=== PATIENT | male | born 1980 | race Caucasian/White ===

== ENCOUNTER 2024-01-07 07:45 | Emergency (ER) | payer SELFPAY ==
[2024-01-07 12:16] LABS: BASOPHILS ABSOLUTE AUTO 0.05 K/uL (0.00-0.20); BASOPHILS PERCENT AUTO 0.6 % (0.0-1.0); EOSINOPHILS ABSOLUTE AUTO 0.94 K/uL (0.00-0.45); EOSINOPHILS PERCENT AUTO 11.2 % (0.0-6.0); HEMATOCRIT 42.1 % (42.0-52.0); HEMOGLOBIN 15.3 g/dL (14.0-18.0); IMMATURE GRAN ABSOLUTE AUTO 0.02 K/uL (0.00-0.05); IMMATURE GRAN PERCENT AUTO 0.2 % (0.0-0.4); LYMPHOCYTES ABSOLUTE AUTO 2.04 K/uL (1.00-4.80); LYMPHOCYTES PERCENT AUTO 24.3 % (24.0-44.0); MEAN CORPUSCULAR HEMOGLOBIN 31.8 pg (28.0-32.0); MEAN CORPUSCULAR HGB CONC 36.3 g/dL (32.0-36.0); MEAN CORPUSCULAR VOLUME 87.5 fL (83.0-99.0); MEAN PLATELET VOLUME 9.7 fL (9.4-12.4); MONOCYTES ABSOLUTE AUTO 0.54 K/uL (0.00-0.80); MONOCYTES PERCENT AUTO 6.4 % (0.0-8.0); NEUTROPHILS PERCENT AUTO 57.3 % (41.0-71.0); PLATELET COUNT,PLT 267 K/uL (150-400); RED BLOOD CELL COUNT 4.81 M/uL (4.52-5.90); WHITE BLOOD CELL COUNT,WBC 8.39 K/uL (3.9-11.3)
[2024-01-07 12:20] LABS: A/G RATIO 1.1 (0.9-1.6); ALBUMIN 3.6 g/dL (3.4-5.0); BILIRUBIN TOTAL 0.3 mg/dL (0.2-1.0); C-REACTIVE PROTEIN 0.57 mg/dL (<0.3); CALCIUM 8.5 mg/dL (8.5-10.1); CARBON DIOXIDE,CO2 24.1 mmol/L (21.0-32.0); CREATININE 0.9 mg/dL (0.8-1.3); EST CRCL DRUG DOSING (CG) 108.01 mL/min; POTASSIUM,K 3.7 mmol/L (3.5-5.1); PROTEIN TOTAL,TP 6.8 g/dL (6.4-8.2)
== END 2024-01-07 11:25 | disposition home or self-care (01) ==
LOC: MW.ED 07:45
DX: S91.301A Unspecified open wound, right foot, initial encounter (principal); X58.XXXA Exposure to other specified factors, initial encounter
CPT/HCPCS: 36415; 73630-26-RT; 73630-RT; 80053; 85025; 85652; 86140; 99283

== ENCOUNTER 2024-04-03 09:23 | Emergency (ER) | payer SELFPAY ==
[2024-04-03] MEDS ORDERED: Sodium Chloride 0.9% 2.5 ML Syringe FLUSH PRN (12:04)
[2024-04-03] MEDS ORDERED: Sodium Chloride 0.9% 10 ML Syringe FLUSH PRN (12:04)
[2024-04-03] MEDS ORDERED: Sodium Chloride 0.9% 20 ML SDV IV PRN (12:04)
[2024-04-03 12:58] LABS: CALCIUM 9.3 mg/dL (8.5-10.1); CARBON DIOXIDE,CO2 25.9 mmol/L (21.0-32.0); CREATININE 0.8 mg/dL (0.8-1.3); EST CRCL DRUG DOSING (CG) 151.59 mL/min; POTASSIUM,K 4.3 mmol/L (3.5-5.1)
[2024-04-03] MEDS: Gadobenate Dimeglumine 529 MG/ML 20 ML SDV IVPUSH STA (13:14)
== END 2024-04-03 15:08 | disposition home or self-care (01) ==
LOC: MW.ED 09:23
DX: E11.69 Type 2 diabetes mellitus with other specified complication (principal); M86.9 Osteomyelitis, unspecified; E11.621 Type 2 diabetes mellitus with foot ulcer; L97.519 Non-pressure chronic ulcer of other part of right foot with unspecified severity; F17.210 Nicotine dependence, cigarettes, uncomplicated; Z79.84 Long term (current) use of oral hypoglycemic drugs; Z79.899 Other long term (current) drug therapy; Z75.8 Other problems related to medical facilities and other health care
CPT/HCPCS: 36415; 73720; 80048; 99284; A9577

== ENCOUNTER 2024-04-06 07:01 | Inpatient (IN) | payer OTHER ==
[2024-04-06 08:02] LABS: BASOPHILS ABSOLUTE AUTO 0.05 K/uL (0.00-0.20); BASOPHILS PERCENT AUTO 0.6 % (0.0-1.0); EOSINOPHILS ABSOLUTE AUTO 0.83 K/uL (0.00-0.45); EOSINOPHILS PERCENT AUTO 10.8 % (0.0-6.0); HEMATOCRIT 44.6 % (42.0-52.0); HEMOGLOBIN 15.8 g/dL (14.0-18.0); IMMATURE GRAN ABSOLUTE AUTO 0.02 K/uL (0.00-0.05); IMMATURE GRAN PERCENT AUTO 0.3 % (0.0-0.4); LYMPHOCYTES ABSOLUTE AUTO 1.61 K/uL (1.00-4.80); LYMPHOCYTES PERCENT AUTO 20.9 % (24.0-44.0); MEAN CORPUSCULAR HEMOGLOBIN 30.5 pg (28.0-32.0); MEAN CORPUSCULAR HGB CONC 35.4 g/dL (32.0-36.0); MEAN CORPUSCULAR VOLUME 86.1 fL (83.0-99.0); MEAN PLATELET VOLUME 9.8 fL (9.4-12.4); MONOCYTES ABSOLUTE AUTO 0.57 K/uL (0.00-0.80); MONOCYTES PERCENT AUTO 7.4 % (0.0-8.0); NEUTROPHILS ABSOLUTE AUTO 4.64 K/uL (1.80-7.70); PLATELET COUNT,PLT 222 K/uL (150-400); RED BLOOD CELL COUNT 5.18 M/uL (4.52-5.90); WHITE BLOOD CELL COUNT,WBC 7.72 K/uL (3.9-11.3)
[2024-04-06 08:10] LABS: CALCIUM 8.7 mg/dL (8.5-10.1); CARBON DIOXIDE,CO2 24.4 mmol/L (21.0-32.0); CREATININE 0.9 mg/dL (0.8-1.3); EST CRCL DRUG DOSING (CG) 134.75 mL/min
[2024-04-06] MEDS ORDERED: Sodium Chloride 0.9% 2.5 ML Syringe FLUSH PRN (10:12)
[2024-04-06] MEDS ORDERED: Polyethylene Glycol 3350 Powder 17 GM Packet PO PRN (10:12)
[2024-04-06] MEDS ORDERED: Ondansetron 4 MG/2 ML SDV IVPUSH PRN (10:12)
[2024-04-06] MEDS ORDERED: Acetaminophen 650 MG Supp RECTAL PRN (10:12)
[2024-04-06] MEDS ORDERED: Sodium Chloride 0.9% 10 ML Syringe FLUSH PRN (10:12)
[2024-04-06] MEDS ORDERED: 50% Dextrose in Water 50 ML Syringe IVPUSH PRN (10:16)
[2024-04-06] MEDS ORDERED: Glucagon,Human Recombinant 1 MG Vial IM PRN (10:16)
[2024-04-06 10:34] LABS: HEMOGLOBIN A1C 5.8 %
[2024-04-06] MEDS: Insulin Aspart 100 Units/ML 3 ML Pen SUBCUT SCH (12:12)
[2024-04-06] MEDS: VANCOmycin 2 GM/400 ML 2 GM in Premix Bag 1 BAG IV ONE (12:18)
[2024-04-06] MEDS: Piperacillin/Tazobactam 4.5 GM in Sodium Chloride 0.9% 100 ML IV ONE (12:32)
[2024-04-06] MEDS: Piperacillin/Tazobactam 4.5 GM in Sodium Chloride 0.9% 100 ML IV SCH (17:32)
[2024-04-06] MEDS: VANCOmycin 1.5 GM/300 ML 1.5 GM in Premix Bag 1 BAG IV SCH (22:54)
[2024-04-07 05:49] LABS: HEMATOCRIT 43.3 % (42.0-52.0); HEMOGLOBIN 15.2 g/dL (14.0-18.0); MEAN CORPUSCULAR HEMOGLOBIN 30.6 pg (28.0-32.0); MEAN CORPUSCULAR HGB CONC 35.1 g/dL (32.0-36.0); MEAN CORPUSCULAR VOLUME 87.1 fL (83.0-99.0); MEAN PLATELET VOLUME 9.8 fL (9.4-12.4); PLATELET COUNT,PLT 201 K/uL (150-400); RED BLOOD CELL COUNT 4.97 M/uL (4.52-5.90); WHITE BLOOD CELL COUNT,WBC 6.26 K/uL (3.9-11.3)
[2024-04-07 06:11] LABS: C-REACTIVE PROTEIN 0.36 mg/dL (<0.3); CALCIUM 8.6 mg/dL (8.5-10.1); CARBON DIOXIDE,CO2 25.5 mmol/L (21.0-32.0); CREATININE 0.9 mg/dL (0.8-1.3); EST CRCL DRUG DOSING (CG) 134.75 mL/min
[2024-04-07] MEDS ORDERED: Morphine 2 MG/ML SYRINGE IVPUSH PRN (07:37)
[2024-04-07] MEDS ORDERED: Ondansetron 4 MG/2 ML SDV IVPUSH PRN (07:37)
[2024-04-07] MEDS ORDERED: HYDROmorphone 1 MG/ML Syringe IVPUSH PRN (07:37)
[2024-04-07] MEDS ORDERED: fentaNYL 50 MCG/ML SDV IVPUSH PRN (07:37)
[2024-04-07] MEDS ORDERED: Naloxone 0.4 MG/ML SDV IVPUSH PRN (07:37)
[2024-04-07] MEDS ORDERED: Metoclopramide 10 MG/2 ML SDV IVPUSH PRN (07:37)
[2024-04-07] MEDS ORDERED: Albuterol 0.083% 2.5 MG/3 ML Neb Soln NEB PRN (07:37)
[2024-04-07] MEDS ORDERED: droPERidol 5 MG/2 ML SDV IVPUSH PRN (07:37)
[2024-04-07] MEDS ORDERED: Propofol 200 MG/20 ML SDV ONE ×2 (08:34→10:45)
[2024-04-07] MEDS ORDERED: fentaNYL 100 MCG/2 ML SDV ONE (08:34)
[2024-04-07] MEDS ORDERED: Ketamine HCL/NACL, ISO-OSM 50 MG/5 ML Syringe ONE (08:34)
[2024-04-07] MEDS ORDERED: dexmedeTOMIDine HCl 200 MCG/2 ML SDV ONE (08:36)
[2024-04-07] MEDS ORDERED: Water For Injection, Sterile 20 ML ONE (08:36)
[2024-04-07] MEDS ORDERED: Rocuronium Bromide 50 MG/5 ML Syringe ONE (08:38)
[2024-04-07] MEDS ORDERED: Bupivacaine 0.5% 30 ML SDV ONE (08:54)
[2024-04-07] MEDS ORDERED: Ondansetron 4 MG/2 ML SDV ONE (09:32)
[2024-04-07] MEDS ORDERED: Ketorolac 30 MG/ML SDV ONE (09:55)
[2024-04-07] MEDS ORDERED: Sugammadex Sodium 200 MG/2 ML VIAL IV ONE (09:55)
[2024-04-07] MEDS: Heparin Sodium 5,000 Units/ML Vial SUBCUT SCH (21:15)
[2024-04-08 06:25] LABS: HEMATOCRIT 41.1 % (42.0-52.0); HEMOGLOBIN 14.7 g/dL (14.0-18.0); MEAN CORPUSCULAR HEMOGLOBIN 31.5 pg (28.0-32.0); MEAN CORPUSCULAR HGB CONC 35.8 g/dL (32.0-36.0); MEAN PLATELET VOLUME 9.9 fL (9.4-12.4); PLATELET COUNT,PLT 179 K/uL (150-400); RED BLOOD CELL COUNT 4.67 M/uL (4.52-5.90); WHITE BLOOD CELL COUNT,WBC 8.34 K/uL (3.9-11.3)
[2024-04-08 06:46] LABS: CALCIUM 8.4 mg/dL (8.5-10.1); CARBON DIOXIDE,CO2 25.9 mmol/L (21.0-32.0); CREATININE 0.8 mg/dL (0.8-1.3); EST CRCL DRUG DOSING (CG) 151.59 mL/min
[2024-04-08] MEDS: Lisinopril 5 MG Tab PO SCH (09:54)
[2024-04-08] MEDS: Acetaminophen 325 MG Tab PO PRN (18:37)
[2024-04-09 06:04] LABS: HEMATOCRIT 42.6 % (42.0-52.0); HEMOGLOBIN 15.2 g/dL (14.0-18.0); MEAN CORPUSCULAR HEMOGLOBIN 31.1 pg (28.0-32.0); MEAN CORPUSCULAR HGB CONC 35.7 g/dL (32.0-36.0); MEAN CORPUSCULAR VOLUME 87.1 fL (83.0-99.0); MEAN PLATELET VOLUME 9.5 fL (9.4-12.4); PLATELET COUNT,PLT 191 K/uL (150-400); RED BLOOD CELL COUNT 4.89 M/uL (4.52-5.90); WHITE BLOOD CELL COUNT,WBC 6.96 K/uL (3.9-11.3)
[2024-04-09 06:19] LABS: CALCIUM 8.5 mg/dL (8.5-10.1); CARBON DIOXIDE,CO2 23.6 mmol/L (21.0-32.0); CREATININE 0.8 mg/dL (0.8-1.3); EST CRCL DRUG DOSING (CG) 151.59 mL/min; POTASSIUM,K 3.8 mmol/L (3.5-5.1)
== END 2024-04-09 12:15 | disposition home or self-care (01) | DRG 617 ==
LOC: MW.ED 07:01 → MW.MS 09:24
PROVIDERS: ADMIT Family Medicine; ATTEND Family Medicine
PROC: 0Y6X0Z2 Detachment at Right 5th Toe, Mid, Open Approach (ICD-10-PCS; principal; 2024-04-07 08:00)
DX: E11.69 Type 2 diabetes mellitus with other specified complication (principal); M86.9 Osteomyelitis, unspecified; F17.210 Nicotine dependence, cigarettes, uncomplicated; E11.621 Type 2 diabetes mellitus with foot ulcer; L97.519 Non-pressure chronic ulcer of other part of right foot with unspecified severity; Z79.84 Long term (current) use of oral hypoglycemic drugs; Z79.899 Other long term (current) drug therapy
CPT/HCPCS: 01480; 36415; 76000; 76000-26; 80048; 80202; 82947; 83036; 83735; 85025; 85027; 85730; 86140; 87070; 87075; 87077; 87147; 87186; 87205; 97161-GP; 99284; 99285; A9270-GY; J0131; J0665; J1644; J1885; J2405; J2543; J2704; J3010; J3370; J3490; J7050

== ENCOUNTER 2024-11-03 08:23 | Emergency (ER) | payer BC ==
[2024-11-03 09:49] LABS: BASOPHILS ABSOLUTE AUTO 0.07 K/uL (0.00-0.20); BASOPHILS PERCENT AUTO 0.9 % (0.0-1.0); EOSINOPHILS ABSOLUTE AUTO 0.87 K/uL (0.00-0.45); HEMATOCRIT 42.5 % (42.0-52.0); HEMOGLOBIN 14.9 g/dL (14.0-18.0); IMMATURE GRAN ABSOLUTE AUTO 0.02 K/uL (0.00-0.05); IMMATURE GRAN PERCENT AUTO 0.3 % (0.0-0.4); LYMPHOCYTES ABSOLUTE AUTO 1.32 K/uL (1.00-4.80); LYMPHOCYTES PERCENT AUTO 16.7 % (24.0-44.0); MEAN CORPUSCULAR HEMOGLOBIN 29.7 pg (28.0-32.0); MEAN CORPUSCULAR HGB CONC 35.1 g/dL (32.0-36.0); MEAN CORPUSCULAR VOLUME 84.7 fL (83.0-99.0); MEAN PLATELET VOLUME 9.9 fL (9.4-12.4); MONOCYTES ABSOLUTE AUTO 0.63 K/uL (0.00-0.80); NEUTROPHILS ABSOLUTE AUTO 5.01 K/uL (1.80-7.70); NEUTROPHILS PERCENT AUTO 63.1 % (41.0-71.0); PLATELET COUNT,PLT 171 K/uL (150-400); RED BLOOD CELL COUNT 5.02 M/uL (4.52-5.90); WHITE BLOOD CELL COUNT,WBC 7.92 K/uL (3.9-11.3)
[2024-11-03 10:03] LABS: INR 0.98 (0.86-1.11)
[2024-11-03 10:16] LABS: CALCIUM 8.9 mg/dL (8.5-10.1); CARBON DIOXIDE,CO2 27.8 mmol/L (21.0-32.0); CREATININE 0.8 mg/dL (0.8-1.3); EST CRCL DRUG DOSING (CG) 151.59 mL/min; POTASSIUM,K 4.5 mmol/L (3.5-5.1)
== END 2024-11-03 11:16 | disposition home or self-care (01) ==
LOC: MW.ED 08:23
DX: I82.A11 Acute embolism and thrombosis of right axillary vein (principal); E11.9 Type 2 diabetes mellitus without complications; Z79.84 Long term (current) use of oral hypoglycemic drugs; Z79.899 Other long term (current) drug therapy
CPT/HCPCS: 36415; 71045; 71045-26; 80048; 85025; 85610; 93971-26-RT; 93971-RT; 99284